=== PATIENT | male | born 1990 | race Two or more races ===

== ENCOUNTER 2021-06-11 10:06 | Outpatient (CLI) | payer OTHER ==
[2021-06-11 21:18] VITALS: BP 135/95
--- NOTE | 2021-06-11 21:18 | SLEEP CARE CONSULTATION ---
Information from patient questionnaire entered by Christina Kurtz MA. I have reviewed and concur with the information entered by Christina Kurtz MA. This document represents the service I personally performed and the decisions made by me, Meera Suazo MD, [facility]. History of Present Illness Service Date and Time: 06/11/2021 1006 Reason for Visit: New patient (ONSET 04/2018, WAS ON CPAP) Chief Complaint: reports: Insomnia, Unrefreshed sleep, Snoring, Excessive daytime sleepiness, Observed pauses in breathing, Frequent awakenings at night, Other Date of Onset: 3 YEARS Usual bedtime: 900 PM Time it takes to fall asleep: 1-2 HOURS Snores at night: Yes Observed to quit breathing while asleep: Yes Sleeps alone due to snoring: No Number of times waking at night: 3-4 Reasons for waking at night: denies: Other Toss, Turn, or Twitch while sleeping: Yes Recalls having dreams: Yes Usually gets out of bed at: 0400 Feels refreshed in the morning: No Morning headache: Yes Sleepy or fatigued during the day: Yes Ever fallen asleep while driving: No Takes day naps: No Dreams during day naps: No Prior sleep studies: Yes Additional HPI information: I had the pleasure of seeing Mr. Rodgers today regarding obstructive sleep apnea- hypopnea. As you know, he is a 31-year-old gentleman who was diagnosed with obstructive sleep apnea-hypopnea in [place] about two years ago. The report is not available, and he cannot recall the severity. He recalls being told by the sleep physician that the study should be repeated but because of the pandemic, it never was. He has a ResMed AirSense set at 5 15 cmH2O. The compliance data show usage in 47 out of the past 180 nights, averaging 3 hours a night. The residual AHI is 2.1 and average air leak is 1.1 L/minute. He wore an [id number] mask. In the past 3 months he used it only 3 times. This is because his supplies stopped when he moved here from [place]. He did have significant improvement in his sleep quality, and that he woke up feeling fresher in the morning and more awake/alert during the day. He would like to go back and use his CPAP. He is not sure who was his durable medical supplier. The patient tells me that he normally goes to bed around 9 pm, and it takes him approximately 1 - 2 to fall asleep. He can recall waking up on the average of 3 - 4 times during the night. Most of the time he wakes up because of unknown reason. There is a lot of tossing and turning in his sleep. No somniloquy (sleep talking) or somnambulism (sleep walking). Generally, he can recall h aving dreams. In the morning he usually gets up out of the bed around 4 a.m. not feeling refreshed nor rested. He usually has a morning headache that can last all day. During the day he complains of feeling sleepy and fatigued. His score on Solon Sleepiness Scale is 9 out of 24. He never has fallen asleep while driving nor has had any accident due to sleepiness. He usually does not take naps during the day. He has never had sleep paralysis, experienced cataplexy or symptoms of restless leg syndrome. 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 Patient is and lives in . Have you smoked in the past 12 months: No Alcohol use: No Caffeine use: Yes Caffeine amount and frequency: 1-2 X MONTHLY Family History Family history of sleep disordered breathing: Yes Family Hx Sleep Apnea: Mother: Snoring, Father: Snoring, Sleep apnea - Untreated, Grandparent: Snoring Allergies and Home Medications Known drug allergies: No Drug allergies reviewed: Yes Home medication list reviewed: Yes Review of Systems Cardiovascular: denies: high blood pressure, palpitations, chest pain, irregular heart rate or pulse, leg or foot swelling, have to sleep sitting up, other Respiratory: denies: shortness of breath, wheeze, sputum production, chronic cough, other Gastrointestinal: reports: heartburn, vomitting Urinary: denies: incontinence, frequency, urgency, impotence, other Neurological: reports: headaches Psychiatric: reports: anxiety Ear/Nose/Throat: reports: wisdom teeth removed Endocrine: denies: thyroid disease, history of goiter, sluggishness, too hot or cold, excessive thirst, increased appetite, increased urination, unexplained weakness, other Musculoskeletal: reports: joint pain, back pain Immunologic: denies: sneezing, rash, itching, allergies to food or environment, other Physical Exam Vital signs obtained and entered by: Jayleen KURTZ CMA [facility] Blood Pressure: 135/95 (RIGHT, PULSE 72, RESP 18, ) Cuff size: wrist Heart Rate: 79 O2 Saturation: 98 (CLOTH MASK) Height: 6 ft Weight: 214 lb (PT CLOTHES) Body Mass Index: 29.0 BMI Classification: Overweight Neck circumference: 16.5 (INCHES) Mood/affect: Normal HEENT: No craniofacial malformation Nostrils: patent to airflow Turbinates: normal Septum: midline Mouth and throat: narrow oropharynx Soft palate: long Hard palate: normal Uvula: normal Uvula visualization: 50% Mallampati Class II Tongue: normal in size Tonsils: small Chin and jaw: normal size and position Impression and Plan IMPRESSION: 1. Obstructive Sleep Apnea-Hypopnea Syndrome, as previously diagnosed. The severity is unknown as we do not have any of the records. The patient is presently not using his CPAP due to lack of supplies. Because his sleep physician in [place] wanted to repeat the sleep study 2 years ago, I will order a new on here. In the meantime, I will order him CPAP supplies through a local durable medical supplier. Plan: 1. Schedule an in-laboratory polysomnography. 2. Prescription made for supplies 3. Avoid alcohol, sedative and muscle relaxant around bedtime. 4. Attempt to lose weight. Prescriptions: Device supplies Follow up with Sleep Care in: 1-2 months Visit Type: In Office Time Spent with Patient (minutes): 15 Provider Statement: I spent 100% of the Face to Face Visit with the patient with greater than 50% spent counseling the patient and coordination of care.
== END 2021-06-11 10:07 | disposition home or self-care (01) ==
LOC: SC 10:06
PROVIDERS: ATTEND Internal Medicine Pulmonary Disease
DX: G47.33 Obstructive sleep apnea (adult) (pediatric) (principal)
CPT/HCPCS: 99202; 99212

== ENCOUNTER 2021-09-12 19:34 | Outpatient (CLI) | payer OTHER | END 2021-09-12 19:35 | disposition home or self-care (01) | LOC: SC 19:34 | PROVIDERS: ATTEND Internal Medicine Pulmonary Disease | DX: G47.33 Obstructive sleep apnea (adult) (pediatric) (principal) | CPT/HCPCS: 95810 ==

== ENCOUNTER 2021-10-15 10:45 | Outpatient (CLI) | payer OTHER ==
[2021-10-15 11:32] VITALS: BP 118/82
--- NOTE | 2021-10-15 11:32 | SLEEP CARE CONSULTATION ---
Information from patient questionnaire entered by Kelli Meadows. I have reviewed and concur with the information entered by Kelli Meadows. This document represents the service I personally performed and the decisions made by me, Meera Suazo MD, [facility]. History of Present Illness Service Date and Time: 10/15/2021 1045 Initial Vance Sleepiness Scale score: 9 (2021) Current Vance Sleepiness Scale score: 10 (10/15/21) Additional HPI information: Mr. Vishal Fuller returned for follow up of the sleep study he had on 09-12-2021. The polysomnography showed that the patient had normal sleep efficiency. The sleep architecture was normal as well. Respiratory monitoring showed no significant sleep disordered breathing (AHI = 2.4) or hypoxia (jermaine oxygen saturation of 89%). The patient slept adequately in supine position (supine AHI = 2.4; non-supine = 0.00). Snore was infrequent and moderate in intensity. There was no significant periodic leg movement of sleep. Cardiac rhythm was normal sinus rhythm without significant arrhythmia. No abnormal behavior (parasomnia) observed during the night. The patient was informed of these findings. I explained to him that the sleep study negative. His sleep efficiency and architecture were normal. The patient agrees that he slept unusually well that night. He said he was diagnosed with obstructive sleep apnea-hypopnea in [place] several years ago and prescribed a CPAP. He talked to the sleep physician on the phone but never met the person because it was during the COVID outbreak. 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 Sleep Study - Results Type of Sleep Study: Polysomnography (F/U POLY DONE ON 09/12/21) Prior sleep studies: Yes Allergies and Home Medications Drug allergies reviewed: Yes Home medication list reviewed: Yes Review of Systems Review of systems same as previous: Yes Physical Exam Vital signs obtained and entered by: OLIVIA, ARBITRATOR Blood Pressure: 118/82 (left arm ) Cuff size: regular Heart Rate: 83 O2 Saturation: 97 Height: 6 ft Weight: 217 lb Body Mass Index: 29.4 BMI Classification: Overweight Impression and Plan IMPRESSION: 1. Obstructive Sleep Apnea-Hypopnea Syndrome, previously diagnosed in [place] but not present on our sleep study. He did sleep almost exclusively on his back during this study. He recalls having slept better using his CPAP. He does not use it now due to lack of supplies but would like to go back using it. I told him that CPAP is harmless, and he can use it if he wants. If he can come up with his old sleep study report that shows obstructive sleep apnea- hypopnea, I can order him new supplies based on it. PLAN: 1. Try to obtain his sleep study that shows obstructive sleep apnea- hypopnea. 2. Otherwise return to the sleep clinic on as needed basis. Follow up with Sleep Care in: as needed Visit Type: In Office Time Spent with Patient (minutes): 20 Provider Statement: I spent 100% of the Face to Face Visit with the patient with greater than 50% spent counseling the patient and coordination of care.
== END 2021-10-15 10:46 | disposition home or self-care (01) ==
LOC: SC 10:45
PROVIDERS: ATTEND Internal Medicine Pulmonary Disease
DX: G47.33 Obstructive sleep apnea (adult) (pediatric) (principal); E66.3 Overweight; Z68.29 Body mass index [BMI] 29.0-29.9, adult
CPT/HCPCS: 99212; 99213

== ENCOUNTER 2021-12-13 08:46 | Emergency (ER) | payer OTHER ==
--- NOTE | 2021-12-13 09:35 | ED Physician Documentation ---
PD HPI HEADACHE - Stated complaint Stated Complaint: MIGRAINE/LIGHTHEADED - Chief complaint Chief Complaint: Neuro - History obtained from History obtained from: Patient - Additional information Additional information: The patient comes to the emergency department for chief complaint of headache and nausea, worse than usual. He states that he has about a 4-month history of new onset headaches which have been presumed to be migraines, though he has not had any work-up for this. He states that he gets them generally couple times a week, and is on amitriptyline and Imitrex for them. He states that the meds help, but not completely. He states he went to the dentist yesterday and had some work done and was put on Percocet for this afterward. He states that he is taking the Percocet as well as his normal headache medications and just does not seem to be helping. Patient was nauseated yesterday morning and vomited several times but by yesterday evening, was able to tolerate some light foods and liquids. He ate breakfast this morning without any difficulty. The patient denies any specific neurologic symptoms otherwise. He states he feels the pain in the back of his head radiating up over the top of his head and into his temples where he feels throbbing, and then he feels a pressure behind both eyes. No visual changes. He states he is otherwise healthy. No recent head injury or illness. No change in his medications. The patient has previously been diagnosed with sleep apnea and had a CPAP machine prescribed but has never used it. He had a normal sleep study this summer and has been followed by the sleep specialist. No other complaints at this time Review of Systems Ten Systems: 10 systems reviewed and negative Constitutional: reports: Reviewed and negative Eyes: reports: Reviewed and negative Ears: reports: Reviewed and negative Nose: reports: Reviewed and negative Throat: reports: Reviewed and negative Cardiac: reports: Reviewed and negative Respiratory: reports: Reviewed and negative GI: reports: Reviewed and negative : reports: Reviewed and negative Skin: reports: Reviewed and negative Musculoskeletal: reports: Reviewed and negative Neurologic: reports: Headache Psychiatric: reports: Reviewed and negative Endocrine: reports: Reviewed and negative Immunocompromised: reports: Reviewed and negative PD PAST MEDICAL HISTORY - Past Medical History Past Medical History: No Neuro: Migraines - Past Surgical History Past Surgical History: No - Allergies Allergies/Adverse Reactions: Allergies Allergy/AdvReac Type Severity Reaction Status Date / Time No Known Drug Allergies Allergy Verified 12/13/21 08:54 - Social History Does the pt smoke?: No Smoking Status: Never smoker Does the pt drink ETOH?: No Does the pt have substance abuse?: No - Immunizations Immunizations are current?: Yes - POLST Patient has POLST: No PD ED PE NORMAL - Vitals Vital signs reviewed: Yes - General General: Alert and oriented X 3, No acute distress, Well developed/nourished, Other (The patient appears well.) - HEENT HEENT: Atraumatic, PERRL, EOMI, Moist mucous membranes - Neck Neck: Supple, no meningeal sign, No bony TTP - Cardiac Cardiac: RRR, No murmur, Strong equal pulses - Respiratory Respiratory: No respiratory distress, Clear bilaterally - Abdomen Abdomen: Soft, Non tender, Non distended - Derm Derm: Normal color, Warm and dry, No rash - Extremities Extremities: No deformity - Neuro Neuro: Alert and oriented X 3, strategic communications manager 2-12 intact, No motor deficit, No sensory deficit, Normal speech - Psych Psych: Normal mood, Normal affect Results - Vitals Vitals: Vital Signs - 24 hr 12/13/21 08:51 Temperature 35.9 C L Heart Rate 89 Respiratory 16 Rate Blood Pressure 140/87 H O2 Saturation 99 Oxygen O2 Source Room air - Rads (name of study) head CT Radiology: Final report received, EMP read indepedently, See rad report (Negative) PD MEDICAL DECISION MAKING - ED course Complexity details: reviewed results, re-evaluated patient, considered differential, d/w patient ED course: The patient had not had any work-up for his headaches of 4 months and I felt that he should have some imaging done. He was sent for CT scan of the head which was unremarkable. Patient declined any symptomatic management in the ED. He is in the [place] and is set to deploy soon, but I have discussed with him that he should set up follow-up with his primary doctor, who is already well aware of his headaches. The patient may need to have specialty follow-up with neurology and I have discussed this with him. At this point in time, he may continue the Imitrex and amitriptyline, as well as the as needed Percocet. We have discussed the usual indications for return. Departure - Departure Disposition: 01 Home, Self Care Clinical Impression: Headache Qualifiers: Headache type: unspecified Headache chronicity pattern: acute headache Intractability: not intractable Qualified Code(s): R51.9 - Headache, unspecified Condition: Stable Instructions: ED Cephalgia Unspecified Comments: Your CT scan was normal. It is not clear whether you are having migraine headaches or tension headaches, and often, the 2 coexist. Please continue your current medications and please see your doctor soon as possible to discuss neurology referral. Forms: Activity restrictions
--- NOTE | 2021-12-13 10:05 | CT Report ---
PROCEDURE: HEAD WO INDICATIONS: headaches, worsening TECHNIQUE: Noncontrast 4.5 mm thick angled axial sections acquired from the foramen magnum to the vertex. For r adiation dose reduction, the following was used: automated exposure control, adjustment of mA and/or kV according to patient size. COMPARISON: None. FINDINGS: Image quality: Excellent. CSF spaces: Basal cisterns are patent. No extra-axial fluid collections. Ventricles are normal in size and shape. Brain: No midline shift. No intracranial masses or hemorrhage. Olvera-white matter interface is norm al. Skull and face: Calvarium and visualized facial bones are intact, without suspicious lesions. Sinuses: Visualized sinuses and mastoids are clear. IMPRESSION: No acute intracranial abnormality. Reviewed by: Saturnino So MD on 12/13/2021 10:03 AM PDT Approved by: Saturnino So MD on 12/13/2021 10:03 AM PDT Station ID: [id number]
[2021-12-13 10:23] VITALS: BP 126/84
== END 2021-12-13 10:22 | disposition home or self-care (01) ==
LOC: ED 08:46
DX: R51.9 Headache, unspecified (principal)
CPT/HCPCS: 99282; 99284

== ENCOUNTER 2023-05-15 14:18 | Outpatient (CLI) | payer OTHER ==
--- NOTE | 2023-05-15 15:11 | SLEEP CARE CONSULTATION ---
Information from patient questionnaire entered by Sayda Grossman. I have reviewed and concur with the information entered by Sayda Grossman. This document represents the service I personally performed and the decisions made by me, Jessica Garcia ARNP. History of Present Illness Service Date and Time: 05/15/2023 1418 Previous diagnosis: Mild, Obstructive Sleep Apnea-Hypopnea Syndrome AHI: 9.1 (in 2019) Reason for follow up: annual (LAST SEEN 10/2021) Equipment type: CPAP (RESMED Airsense 10, s/u 10/2019; NEED MACHINE) Mask style: Nasal Prior sleep studies: Yes Type of Sleep Study: Polysomnography (F/U POLY DONE ON 09/12/21) HPI additional information: I had the pleasure of seeing TEJA CHINCHILLA today regarding the possibility of him having a sleep disorder. His current complaints are unrefreshed sleep, excessive daytime sleepiness, snoring, observed pauses of breathing, frequent night awakenings at night and fatigue. The patient tells me that he normally goes to bed around 9-9:30 pm, and it takes him approximately 30-60 minutes to fall asleep. He has been told that he snores loudly and irregularly at night. He has been observed to stop breathing in his sleep. His bed partner can still sleep in the same bed. He can recall waking up on the average of 2-3 times during the night. Most of the time he wakes up because of unknown reasons. He has not awakened for his own snoring, choking, and having to gasp for air. There is a lot of tossing and turning in his sleep. Generally he can recall having dreams. He usually wakes up at [id number] and does not feel refreshed. He usually does have a morning headache about 1-2 times a week which last throughout the day. During the day he complains of feeling sleepy and fatigued. He has never fallen asleep while driving nor has any accident due to sleepiness. He usually does not take naps during the day. If he naps, upon falling asleep du ring the day he denies having vivid dreams. There is no somniloquy (sleep talking) or somnambulism (sleep walking). He has never experienced sleep paralysis, cataplexy, or symptoms of restless leg syndrome. He reports having impaired concentration during the day. Sleep Study - Results Type of Sleep Study: Polysomnography (F/U POLY DONE ON 09/12/21) Prior sleep studies: Yes CPAP Compliance Data - Data Reviewed with Patient Average duration of nightly device use: 3 hours 1 minutes Compliance rate %: 1 (12/31/2019-03/29/2020; 7 days used) Current pressure setting (cmH2O): 5-15 (median 5.4, avg 6.9, max 8.3) Average residual AHI: 2.1 Average large leak: 0.2 L/min Subjective Missed days of use due to: reports: other (no supply to use machine) Patient concerns: reports: mask discomfort (headgear did not fit). denies: aerophagia, air blowing in eyes, mask leak noise, condensation in mask/hose, nasal congestion, dry mouth, nose, throat, epistaxis Observed to snore while using device: No Current pressure setting perceived as: comfortable On therapy, patient: reports: being more awake and alert during the day. denies: drowsiness while driving Initial [place] Sleepiness Scale score: 9 (2021) Current [place] Sleepiness Scale score: 9 (05/16/23) Allergies and Home Medications Known drug allergies: Yes (percocet) Drug allergies reviewed: Yes Home medication list reviewed: Yes Allergy and home medication list: Allergies acetaminophen [From Percocet] Allergy (Verified 05/15/23 14:46) Dizziness oxycodone [From Percocet] Allergy (Verified 05/15/23 14:46) Dizziness Home Medications Cyclobenzaprine [Flexeril] See Rx Instructions .ROUTE .COMPLEX 05/15/23 [History] SUMAtriptan [Imitrex] See Rx Instructions .ROUTE .COMPLEX 05/15/23 [History] Review of Systems Review of systems same as previous: Yes (BACK SURGERY) Physical Exam Vital signs obtained and entered by: SAYDA Badillo MA Blood Pressure: 128/92 (LEFT ARM) Cuff size: regular Heart Rate: 79 O2 Saturation: 98 Height: 6 ft Weight: 225 lb 6.4 oz Body Mass Index: 30.5 BMI Classification: Obese Impression and Plan 1. Obstructive Sleep Apnea-Hypopnea Syndrome, mild, with poor treatment compliance and good apnea control. On CPAP therapy, the patient has better sleep quality and is more rested overall. He says his symptoms have worsened since we last saw him. He has not been able to get supplies to use his CPAP. He has not mask that fits him comfortably enough to wear the mask. I fit him to a Tala Nuance Pro, gel nasal pillows mask with medium cushion. He felt it was comfortable and will try it. For patient supply concerns, I will have my regional office coordinator inform of DME options. A DWO prescription will then be made. Patient advised to contact this office if further supply problems. Patient's apnea severity and rationale for treatment to reduce apnea, improve sleep quality and reduce cardiovascular and cerebrovascular events was reviewed. I also reviewed the benefit of consistent device use of CPAP for migraines. note: Patient has not been able to use his CPAP because of his supply issues for some time but really wants to restart using his machine. I explained to him that there is a possibility we may need to do another sleep study to reverify his diagnosis and severity. He voiced understanding. 2. Obesity, unspecified. Currently patients BMI is 30.5. Obesity increases the risk of apnea, CPAP pressure requirements and overall health risks especially cardiovascular and diabetes. Thus patient is advised to lose weight. * Continue auto CPAP pressure at 5-15 cmH2O * Mask fitting - fit to nasal pillows mask in office * Transfer DME * Update supply prescription * Notify me if snoring with mask or feeling that the pressure is too much or too little * Attempt to lose weight * Call this office if any problems using CPAP * Return for follow up in 1-2 months, or sooner if concerns arise Mask provided: Yes Counseling Topics: Weight loss health impact Prescriptions: Device supplies (Transfer DME and mask fitting) Follow up with Sleep Care in: 1-2 months Visit Type: In Office Time Spent with Patient (minutes): 29 Provider Statement: I spent 100% of the Face to Face Visit with the patient with greater than 50% spent counseling the patient and coordination of care.
[2023-05-15 15:12] VITALS: BP 128/92; O2SAT 98
== END 2023-05-15 14:19 | disposition home or self-care (01) ==
LOC: SC 14:18
PROVIDERS: ATTEND Nurse Practitioner Family
DX: G47.33 Obstructive sleep apnea (adult) (pediatric) (principal); E66.9 Obesity, unspecified; Z68.30 Body mass index [BMI] 30.0-30.9, adult
CPT/HCPCS: 99212; 99213